=== PATIENT | male | born 1965 | race Asian ===

== ENCOUNTER 2016-09-23 21:50 | Emergency (ER) | payer OTHER ==
[~2016-09-23] VITALS: Ht 170.2 cm; Wt 70.0 kg
[2016-09-23 22:00] VITALS: Ht 170.2 cm; Wt 70.0 kg
[2016-09-23] MEDS ORDERED: KETOROLAC 30 MG INJ IV STA (23:47)
[2016-09-23] MEDS ORDERED: SOD CHLORIDE 0.9% 1,000 ML IV STA (23:47)
[2016-09-24 00:49] LABS: ADD SCAN DIFF NO
[2016-09-24 00:53] LABS: BASOPHILS % 0.2 % (0.0-2.0); EOSINOPHILS % 0.2 % (0.0-7.0); HEMATOCRIT 41.3 % (42.0-52.0); HEMOGLOBIN 13.5 g/dl (14.0-18.0); LYMPHOCYTES # 0.9 10^3/ul (0.8-2.9); MEAN CORPUSCULAR HEMOGLOBIN 31.5 pg (29.0-33.0); MEAN CORPUSCULAR HGB CONC 32.7 g/dl (32.0-37.0); MEAN CORPUSCULAR VOLUME 96.3 fl (82.0-101.0); MEAN PLATELET VOLUME 10.5 fl (7.4-10.4); MONOCYTE # 1.2 10^3/ul (0.3-0.9); MONOCYTES % 9.7 % (0.0-11.0); NEUTROPHILS % 82.4 % (39.0-77.0); PLATELET COUNT 237 10^3/UL (140-415); RED BLOOD COUNT 4.29 10^6/ul (4.70-6.10); RED CELL DISTRIBUTION WIDTH 13.9 % (11.5-14.5); WHITE BLOOD COUNT 12.1 10^3/ul (4.8-10.8)
[2016-09-24 01:07] LABS: ALBUMIN/GLOBULIN RATIO 1.48; BILIRUBIN,INDIRECT 0.4 mg/dl (0-1.1); BILIRUBIN,TOTAL 0.4 mg/dl (0.2-1.3); CALCIUM 9.4 mg/dl (8.4-10.2); CREATININE 0.65 mg/dl (0.61-1.24); POTASSIUM 3.6 mmol/L (3.5-5.1); TOTAL PROTEIN 6.7 g/dl (6.1-8.1)
[2016-09-24 01:11] LABS: ADD UMIC YES; URINE BILIRUBIN (Dip) NEGATIVE (NEGATIVE); URINE BLOOD (Dip) 3+ (NEGATIVE); URINE COLOR LT. YELLOW (YELLOW); URINE GLUCOSE (Dip) NEGATIVE (NEGATIVE); URINE KETONES (Dip) TRACE (NEGATIVE); URINE LEUKOCYTE ESTERASE (Dip) NEGATIVE (NEGATIVE); URINE NITRITE (Dip) NEGATIVE (NEGATIVE); URINE TOTAL PROTEIN (Dip) NEGATIVE (NEGATIVE); URINE UROBILINOGEN (Dip) 0.2 E.U./dL (0.1-1.0)
[2016-09-24 01:34] LABS: URINE RBCS >200 /HPF ([, 0])
[2016-09-24 01:35] LABS: BACTERIA,URINE RARE; SQUAMOUS EPITHELIAL CELL,UR FEW
--- NOTE | 2016-09-24 01:54 | RADRPT ---
PROCEDURE: CT ABDOMEN/PELVIS WITHOUT CONTRAST CLINICAL INDICATION: 51-year-old male with abdominal pain. TECHNIQUE: The study was performed utilizing a [employer] VCT 64-slice CT scanner. Direct axia l sections were obtained through the abdomen and pelvis without the use of intravenous contrast mate rial. Sagittal and coronal reformations were obtained. One or more of the following dose reduction t echniques were utilized: automated exposure control, adjustment of the mA and/or kV according to pat ient's size or use of iterative reconstruction technique. The images were reviewed on a PACS workst [employer]. CTD/vol = 3.9 mGy; Total Exam DLP = 210.3 mGy-cm. COMPARISON: None. FINDINGS: There is minimal bibasilar subsegmental atelectasis. There is no evidence for significant pleural e ffusion. The liver has a normal size and contour without focal areas of abnormal density. No intrah epatic nor extrahepatic biliary ductal dilatation is seen. The gallbladder demonstrates no wall thic kening nor pericholecystic fluid. No biliary stones are evident. The pancreas is without areas of ab normal attenuation. The spleen is identified and has a normal size without abnormal density. The ad renal glands are unremarkable. The right kidney is without abnormal density, calculi or obstruction. There is mild left-sided hydroureteronephrosis with a calculus passing through the left ureteroves ical junction region into the bladder measuring approximately 4 x 3 x 3 mm. There is mild perinephr ic and periureteral infiltration. There are a couple of punctate nonobstructing left upper pole chicho al calculi. There is no evidence for bowel obstruction. The appendix is visualized and is without abnormal thickening or surrounding inflammatory reaction. There is no significant free fluid. The a ortoiliac vessels are mildly calcified but without significant aneurysmal dilatation. The osseous st ructures are intact. IMPRESSION: 1. Mild left-sided hydroureteronephrosis with a 4 x 3 mm calculus passing through the left ureterov esical junction into the bladder. 2. Punctate nonobstructing left upper pole renal calculi. 3. No CT evidence for appendicitis. 4. Vascular calcifications. .Nino Ann MD, MD Date Time Electronically viewed and signed by .Nino Ann MD, on 09/24/2016 01:54 .M/
[2016-09-24] MEDS ORDERED: IBUP-1542 PO (01:58)
[2016-09-24] MEDS ORDERED: ONDA4TAB8 PO (01:58)
[2016-09-24] MEDS ORDERED: HYDR-906 PO (01:58)
--- NOTE | 2016-09-24 02:04 | ERD ---
ER Documentation Chief Complaint Date/Time DATE: 09/24/16 TIME: 02:02 Chief Complaint left sided abd pain x 2 days HPI This is a 51-year-old male presents here with left flank pain that radiates into his left lower abdomen and groin that started 2 days ago. Patient states the pain is severe and constant. He does admit to urinary frequency, dysuria and hematuria. He denies any penile discharge. He is currently sexually active in a monogamous relationship with his . He denies any nausea vomiting or diarrhea. Denies any fevers or chills. Patient tried taking pain medication for his pain however has not worked. ROS 12 point review of systems was done, all negative except per HPI. Medications Home Meds Active Scripts Ondansetron Hcl* (Zofran*) 4 Mg Tablet, 4 MG PO Q6H for NAUSEA AND/OR VOMITING, #30 TAB Prov:WALDEMAR,DUSTIN C 09/24/16 Ibuprofen* (Motrin*) 600 Mg Tab, 600 MG PO Q6, #30 TAB Prov:WALDEMAR,DUSTIN C 09/24/16 Hydrocodone/Acetaminophen ([place] 5-325 Tablet) 1 Each Tablet, 1 TAB PO Q6H Y for PAIN, #20 TAB Prov:WALDEMARDUSTIN C 09/24/16 Allergies Allergies: Coded Allergies: No Known Allergy (Unverified , 09/23/16) PMhx/Soc Hx Alcohol Use: No Hx Substance Use: No Hx Tobacco Use: No Smoking Status: Never smoker Physical Exam Vitals Vital Signs Date Time Temp Pulse Resp B/P Pulse Ox O2 Delivery O2 Flow Rate FiO2 09/23/16 22:00 97.6 98 20 139/84 100 Physical Exam GENERAL: The patient is well developed and appropriate for usual state of health , in no apparent distress. HEENT: Atraumatic. CHEST: Clear to auscultation bilaterally. There are no rales, wheezes or rhonchi. HEART: Regular rate and rhythm. No murmurs, clicks, rubs or gallops. ABDOMEN: Soft, nontender and nondistended. Good bowel sounds. No rebound or guarding. No gross peritonitis. No gross organomegaly or masses. No Matt sign or McBurney point tenderness. BACK: No midline or flank tenderness. NEURO: Alert and oriented Result Diagram: 09/23/16 2358 09/23/16 2358 Results 24 hrs Laboratory Tests Test 09/23/16 23:50 09/23/16 23:58 Urine Color LT. YELLOW Urine Clarity HAZY Urine pH 6.0 Urine Specific [place] 1.010 Urine Ketones TRACE Urine Nitrite NEGATIVE Urine Bilirubin NEGATIVE Urine Urobilinogen 0.2 E.U./dL Urine Leukocyte Esterase NEGATIVE Urine Microscopic RBC >200/HPF Urine Microscopic WBC NONE SEEN/HPF Urine Squamous Epithelial Cells FEW Urine Calcium Oxalate Crystals FEW Urine Bacteria RARE Urine Hemoglobin 3+ Urine Glucose NEGATIVE% Urine Total Protein NEGATIVE White Blood Count 12.110^3/ul Red Blood Count 4.2910^6/ul Hemoglobin 13.5g/dl Hematocrit 41.3% Mean Corpuscular Volume 96.3fl Mean Corpuscular Hemoglobin 31.5pg Mean Corpuscular Hemoglobin Concent 32.7g/dl Red Cell Distribution Width 13.9% Platelet Count 84279^3/UL Mean Platelet Volume 10.5fl Neutrophils % 82.4% Lymphocytes % 7.0% Monocytes % 9.7% Eosinophils % 0.2% Basophils % 0.2% Nucleated Red Blood Cells % 0.0/100WBC Neutrophils # 10.010^3/ul Lymphocytes # 0.910^3/ul Monocytes # 1.210^3/ul Eosinophils # 0.010^3/ul Basophils # 0.010^3/ul Nucleated Red Blood Cells # 0.010^3/ul Sodium Level 137mmol/L Potassium Level 3.6mmol/L Chloride Level 103mmol/L Carbon Dioxide Level 30mmol/L Anion Gap 8 Blood Urea Nitrogen 14mg/dl Creatinine 0.65mg/dl Glucose Level 121mg/dl Calcium Level 9.4mg/dl Total Bilirubin 0.4mg/dl Direct Bilirubin 0.00mg/dl Indirect Bilirubin 0.4mg/dl Aspartate Amino Transf (AST/SGOT) 32IU/L Alanine Aminotransferase (ALT/SGPT) 37IU/L Alkaline Phosphatase 94IU/L Total Protein 6.7g/dl Albumin 4.0g/dl Globulin 2.70g/dl Albumin/Globulin Ratio 1.48 Lipase 72U/L Current Medications Medications (Trade) Dose Ordered Sig/Aiyana Route PRN Reason Start Time Stop Time Status Last Admin Dose Admin Sodium Chloride (NS) 1,000 ml @ 1,000 mls/hr Q1H STAT IV 09/23/16 23:47 09/24/16 00:46 DC 09/24/16 00:37 Ketorolac Tromethamine (Toradol) 30 mg ONCE STAT IV 09/23/16 23:47 09/23/16 23:49 DC 09/24/16 00:38 Procedures/MDM Differential Diagnosis: GERD, gastritis, peptic ulcer disease, pancreatitis, cholecystitis, choledocholithiasis, biliary colic, cholangitis, [id number] , ACS/MS, Pnuemonia, diverticulitis, kidney stones, obstructive stone. This is a 51-year-old male presents to the ER with left-sided flank pain that started 2 days ago. Patient does have a kidney stone. Patient is afebrile and well- appearing, doubt septic stone. Patient's pain was controlled with Toradol. Be sent home with [place], ibuprofen, Zofran. He is to follow-up with his primary care doctor within 1-2 days or return to ER sooner if symptoms worsen. Medical decision making was shared with the patient he understands and agrees with plan. Departure Diagnosis: Primary Impression: Kidney stone Condition: Stable Patient Instructions: Kidney Stone W/ Colic Additional Instructions: Call your primary care doctor TOMORROW for an appointment during the next 1-2 days.See the doctor sooner or return here if your condition worsens before your appointment time. DUSTIN MEDEIROS Sep 24, 2016 02:04
[2016-09-24 02:28] VITALS: BP 122/78; PULSE 78; RESP 20; TEMP 98
== END 2016-09-24 02:30 | disposition home or self-care (01) ==
LOC: FTE 21:50
DX: N20.0 Calculus of kidney (principal)
CPT/HCPCS: 36415; 74176; 80053; 81001; 81003; 83690; 85025; 96374; J1885; J7030; Z7502